=== PATIENT | female | born 1935 | race Native Hawaiian/Other Pacific Islander ===

== ENCOUNTER 2018-01-16 08:50 | Inpatient (IN) | payer MEDICARE, MEDICAID ==
--- NOTE | 2018-01-16 09:25 | ED PDOC ---
Arrival/HPI - General Chief Complaint: Abdominal Pain Time Seen by Provider: 01/16/18 09:10 Historian: Patient, Family (son) - History of Present Illness Narrative History of Present Illness (Text): 01/16/18 09:15 pt p/w + 1 day onset of epigastric pain, waxing and waning, at most pain is 7/10 ; non-radiating, + decr appetite, + nausea, no vomiting, + 5-6 episodes of loose bm/diarrhea, non-bloody/+watery; pt states no fever/chills/sweats, no cp/ sob/palpitations, no numbness/tingling, no urinary changes, no fall/trauma/sick contact, no travel; + lightheadedness, no loc; pt denied other complaints; pt is here for further eval. Time/Duration: 24 hours Symptom Onset: Sudden Symptom Course: Intermittent, Worsening Severity Level: 7, Severe Activities at Onset: Rest Context: Home Past Medical History - Provider Review Nursing Documentation Reviewed: Yes - Travel History Have you recently traveled outside [place] w/in the past 3 mons?: No - Past History Past History: No Previous - Infectious Disease Hx of Infectious Diseases: None - Tetanus Immunization Tetanus Immunization: Unknown - Cardiac Hx Hypertension: Yes - Hematological/Oncological Hx Shingles: Yes - Musculoskeletal/Rheumatological Hx Arthritis: Yes - Psychiatric Hx Depression: No Hx Emotional Abuse: No Hx Physical Abuse: No Hx Substance Use: No - Past Surgical History Past Surgical History: Unable to Obtain - Anesthesia Hx Anesthesia: No - Suicidal Assessment Feels Threatened In Home Enviroment: No Family/Social History - Physician Review Nursing Documentation Reviewed: Yes Family/Social History: No Known Family HX Smoking Status: Never Smoked Hx Alcohol Use: No Hx Substance Use: No Hx Substance Use Treatment: No Allergies/Home Meds Allergies/Adverse Reactions: Allergies No Known Allergies Allergy (Verified 01/16/18 09:22) Home Medications: Home Meds Medication Instructions Recorded Confirmed Unobtainable 01/16/18 01/16/18 Review of Systems - Review of Systems Constitutional: Normal Eyes: Normal ENT: Normal Respiratory: Normal Cardiovascular: Normal Gastrointestinal: Abdominal Pain, Diarrhea, Nausea Genitourinary Female: Normal Musculoskeletal: Normal Skin: Normal Neurological: Dizziness. absent: Headache, Focal Weakness Endocrine: Normal Hemo/Lymphatic: Normal Psychiatric: Normal Physical Exam Vital Signs Reviewed: Yes Vital Signs Temp Pulse Resp BP Pulse Ox 01/16/18 13:19 87 20 113/56 L 95 01/16/18 09:22 98.2 F 95 H 18 139/77 94 L Temperature: Afebrile Blood Pressure: Normal Pulse: Regular Respiratory Rate: Other (slight decr pulse ox, otherwise no tachypenia) Appearance: Positive for: Well-Appearing Pain Distress: Moderate Mental Status: Positive for: Alert and Oriented X 3 - Systems Exam Head: Present: Atraumatic, Normocephalic Pupils: Present: PERRL Extroacular Muscles: Present: EOMI Conjunctiva: Present: Normal Ears: Present: Normal Mouth: Present: Normal Teeth Pharnyx: Present: Normal Nose (External): Present: Atraumatic Nose (Internal): Present: Normal Inspection Neck: Present: Normal Range of Motion, Trachea Midline. No: MIDLINE TENDERNESS Respiratory/Chest: Present: Clear to Auscultation, Good Air Exchange. No: Respiratory Distress Cardiovascular: Present: Regular Rate and Rhythm. No: Murmurs Abdomen: Present: Normal Bowel Sounds Back: Present: Normal Inspection. No: Midline Tenderness Upper Extremity: Present: Normal Inspection, Normal ROM, NORMAL PULSES, Neurovascularly Intact, Capillary Refill < 2s Lower Extremity: Present: Normal Inspection, NORMAL PULSES, Normal ROM, Neurovascularly Intact, Capillary Refill < 2 s Neurological: Present: GCS=15, CN II-XII Intact, Speech Normal Skin: Present: Warm, Normal Color Psychiatric: Present: Alert, Oriented x 3 Medical Decision Making ED Course and Treatment: 01/16/18 09:20 Impression: epigastric pain i have consider all the differential diagnosis regarding pt's chief medical complaints/clinical findings, including but are not limited to: r/o gb, r/o GI pathology, unlikely Cards, unlikely pna A/P: epigastric pain - labs - iv - xray, ekg, us - ua - observe - supportive care 01/16/2018 11:07 Abdominal Ultrasound IMPRESSION: Echogenic liver may be seen in setting of hepatic parenchymal disease or fatty infiltration. Dictator: Olivia Horta MD 01/16/2018 12:38 Chest X-ray IMPRESSION: Mild central pulmonary vascular congestive changes with the atelectasis and/or developing infiltrate right lung base. Small right-sided effusion with small amount of fluid tracking into the minor fissure. Minor left basilar atelectasis. Dictator: Brandon Cassidy DO 01/16/2018 12:39 Abd/Pelvis CT IMPRESSION: No acute findings. Dictator: Luis Barber MD 01/16/18 13:00 pt is feeling improved vital signs indicate pulse ox dips to 89% on room air, pt is not in any distress however with + xray findings and pt's vital sign changes, will recommend patient for admission/iv abx pt/son are made aware of pt's medical results agrees with admission 01/16/18 14:27 Spoke to automobile contract clerk PCP, Dr Fox, made aware, agrees with ED mgt/txt, would like CT chest prior to patient moving upstairs, and would like patient admitted to remote tele; agrees with admission Re-evaluation Time: 13:00 Reassessment Condition: Improved - Lab Interpretations Lab Results: 01/16/18 10:02 01/16/18 11:00 Lab Results 01/16/18 11:00: Sodium 142, Potassium 4.1, Chloride 105, Carbon Dioxide 23, Anion Gap 17, BUN 15, Creatinine 0.6 L, Est GFR ( Amer) > 60, Est GFR ( Non-Af Amer) > 60, Random Glucose 114 H, Calcium 9.0, Total Bilirubin 1.0, AST 29, ALT 43, Alkaline Phosphatase 45, Troponin I < 0.01, Total Protein 7.4, Albumin 4.3, Globulin 3.0, Albumin/Globulin Ratio 1.4, Lipase 60 01/16/18 10:02: PT 10.4, INR 0.91 L, APTT 29.1 01/16/18 10:02: WBC 19.6 H D, RBC 4.70, Hgb 14.8, Hct 43.8, MCV 93.2, MCH 31.5, MCHC 33.8, RDW 13.0, Plt Count 244, MPV 10.1, Gran % 87.0 H, Lymph % (Auto) 7.0 L, [place] % (Auto) 5.7, Eos % (Auto) 0.2 L, Baso % (Auto) 0.1, Gran # 17.05 H, Lymph # (Auto) 1.4, [place] # (Auto) 1.1 H, Eos # (Auto) 0.0, Baso # (Auto) 0.02 I have reviewed the lab results: Yes Interpretation: Abnormal lab values (elevated WBCs) - RAD Interpretation Narrative RAD Interpretations (Text): 01/16/18 11:37 HISTORY: epigastric pain COMPARISON: None available TECHNIQUE: Sonographic evaluation of the abdomen. FINDINGS: LIVER: Measures 15.3 cm in sagittal dimension. Echogenic liver may be seen in setting of hepatic parenchymal disease or fatty infiltration. No focal hepatic mass identified. The main portal vein appears patent with normal directional flow. No intrahepatic bile duct dilatation. GALLBLADDER: No gallstones. No gallbladder wall thickening. Negative sonographic Black's sign as assessed by the cemetery workers supervisor. COMMON BILE DUCT: Measures 5 mm. PANCREAS: Not well visualized. RIGHT KIDNEY: Measures 10.7 x 4.5 x 4.5cm. No obstructing calculus or hydronephrosis identified. LEFT KIDNEY: Measures 10.5 x 5.7 x 5.4cm. No obstructing calculus or hydronephrosis identified. SPLEEN: Measures approximately 7.5 cm. AORTA: Limited views appear unremarkable. IVC: Limited views appear unremarkable. OTHER FINDINGS: None. IMPRESSION: Echogenic liver may be seen in setting of hepatic parenchymal disease or fatty infiltration. 01/16/18 13:38 HISTORY: epigastric pain, weakness COMPARISON: Comparison made with chest radiograph 06/26/2013. TECHNIQUE: Chest PA and lateral FINDINGS: LUNGS: Mild central pulmonary vascular congestive changes the with atelectasis and or developing infiltrate right lung base. Small right-sided effusion with small amount fluid seen tracking into the minor fissure . Minor left basilar atelectasis. PLEURA: No significant pleural effusion identified. No pneumothorax apparent. CARDIOVASCULAR: Heart size is mildly enlarged. OSSEOUS STRUCTURES: No significant abnormalities. VISUALIZED UPPER ABDOMEN: Normal. OTHER FINDINGS: None. IMPRESSION: Mild central pulmonary vascular congestive changes the with atelectasis and or developing infiltrate right lung base. Small right-sided effusion with small amount of fluid tracking into the minor fissure. Minor left basilar atelectasis. Cardiomegaly. HISTORY: epigastric pain, nausea, diarrhea COMPARISON: None. TECHNIQUE: Contrast dose: 100 cc of Omni 350 Radiation dose: Total exam DLP = 316 mGy-cm. This CT exam was performed using one or more of the following dose reduction techniques: Automated exposure control, adjustment of the mA and/or kV according to patient size, and/or use of iterative reconstruction technique. FINDINGS: LOWER THORAX: Unremarkable. LIVER: Unremarkable. No gross lesion or ductal dilatation. GALLBLADDER AND BILE DUCTS: Unremarkable. PANCREAS: Unremarkable. No gross lesion or ductal dilatation. SPLEEN: Unremarkable. ADRENALS: Unremarkable. No mass. KIDNEYS AND URETERS: Unremarkable. No hydronephrosis. No solid mass. VASCULATURE: Unremarkable. No aortic aneurysm. BOWEL: Unremarkable. No obstruction. No gross mural thickening. APPENDIX: Normal appendix. PERITONEUM: Small amount of free fluid LYMPH NODES: Unremarkable. No enlarged lymph nodes. BLADDER: Unremarkable. REPRODUCTIVE: Unremarkable. 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 IMPRESSION: No acute findings Radiology Orders: 01/16/18 09:37 ABDOMEN COMPLETE [US] Stat 01/16/18 11:38 ABD & PELVIS IV CONTRAST ONLY [CT] Stat CHEST TWO VIEWS (PA/LAT) [RAD] Stat 01/16/18 14:22 CHEST W/O CONTRAST [CT] Stat Crisis Intervention Specialist: Radiologist - EKG Interpretation EKG Interpretation (Text): 01/16/18 13:38 NSR at 80 bpm, normal axis, no ectopy, low voltage inf leads, no st-t changes, borderline EKG; unchanged compare with old ekg 08/2016 Interpreted by ED Physician: Yes Type: 12 lead EKG Comparison: Similar to previous EKG - Medication Orders Current Medication Orders: Sodium Chloride (Sodium Chloride 0.9%) 1,000 mls @ 100 mls/hr IV .Q10H STA Stop: 01/16/18 19:36 Last Admin: 01/16/18 09:59 Dose: 100 mls/hr eMAR Start Stop Document 01/16/18 09:59 OCS (Rec: 01/16/18 10:00 OCS [id number]) Intravenous Solution Start Date 01/16/18 Start Time 10:00 Azithromycin (Zithromax 500mg In Ns) 500 mg in 250 mls @ 167 mls/hr IVPB STAT STA PRN Reason: Protocol Stop: 01/16/18 15:04 Discontinued Medications Famotidine (Pepcid) 20 mg IVP STAT STA Stop: 01/16/18 09:38 Last Admin: 01/16/18 10:00 Dose: 20 mg IVP Administration Document 01/16/18 10:00 OCS (Rec: 01/16/18 10:00 OCS [id number]) Charges for Administration # of IVP Administrations 1 Ceftriaxone Sodium (Rocephin 1 Gram Ivpb) 1 gm in 100 mls @ 200 mls/hr IVPB STAT STA PRN Reason: Protocol Stop: 01/16/18 14:00 Last Admin: 01/16/18 14:06 Dose: 200 mls/hr eMAR Start Stop Document 01/16/18 14:06 OCS (Rec: 01/16/18 14:08 OCS [id number]) Intravenous Solution Start Date 01/16/18 Start Time 14:07 Morphine Sulfate (Morphine) 4 mg IVP STAT STA Stop: 01/16/18 09:38 Last Admin: 01/16/18 10:00 Dose: 4 mg MAR Pain Assessment Document 01/16/18 10:00 OCS (Rec: 01/16/18 10:00 OCS [id number]) Pain Reassessment Is this a pain reassessment? Yes Sleep Is patient sleeping during reassessment? No Presence of Pain Presence of Pain Yes Location Upper or Lower Upper Pain Location Body Site Abdomen Description Description Constant Intensity of Pain at present 7 Aggravating Factors ADL's IVP Administration Document 01/16/18 10:00 OCS (Rec: 01/16/18 10:00 OCS [id number]) Charges for Administration # of IVP Administrations 1 Ondansetron HCl (Zofran Inj) 4 mg IVP STAT STA Stop: 01/16/18 09:38 Last Admin: 01/16/18 10:00 Dose: 4 mg IVP Administration Document 01/16/18 10:00 OCS (Rec: 01/16/18 10:00 OCS [id number]) Charges for Administration # of IVP Administrations 1 Disposition/Present on Arrival - Present on Arrival Any Indicators Present on Arrival: No History of DVT/PE: No History of Uncontrolled Diabetes: No Urinary Catheter: No History Surgical Site Infection Following: None - Disposition Have Diagnosis and Disposition been Completed?: Yes Diagnosis: Pneumonia, Weakness, Dehydration, Leukocytosis Disposition: HOSPITALIZED Disposition Time: 13:43 Patient Plan: Admission Patient Problems: Current Active Problems Problem Status Onset Pneumonia Acute Weakness Acute Dehydration Acute Condition: STABLE Discharge Instructions (ExitCare): Weakness (ED) Referrals: Felix Brooks MD [Primary Care Provider] - Follow up with primary Forms: [employer] (Ecuadorean)
[2018-01-16] MEDS ORDERED: Sodium Chloride 0.9% 1,000 ML IV STA ×2 (09:37→19:32)
[2018-01-16] MEDS ORDERED: Morphine 4 mg/ml ISec IVP STA (09:37)
[2018-01-16 10:25] LABS: BASO # 0.02 K/mm3 (0.0-2.0); BASO % 0.1 % (0.0-3.0); EOS % 0.2 % (1.5-5.0); GRAN # 17.05 (1.4-6.5); HEMOGLOBIN 14.8 g/dL (12.0-16.0); LYMPH # 1.4 (1.2-3.4); MEAN CELL VOLUME 93.2 fl (80.0-105.0); MEAN CORPUSCULAR HEMOGLOBIN 31.5 pg (25.0-35.0); MEAN CORPUSCULAR HGB CONC 33.8 g/dl (31.0-37.0); MEAN PLATELET VOLUME 10.1 fl (7.0-11.0); MONO # 1.1 (0.1-0.6); MONO % 5.7 % (1.0-6.0); RBC 4.7 10^6/uL (3.5-6.1); WHITE BLOOD COUNT 19.6 10^3/ul (4.5-11.0)
[2018-01-16 10:39] LABS: INR 0.91 (0.93-1.08); PARTIAL THROMBOPLASTIN TIME 29.1 Seconds (25.1-36.5); PROTHROMBIN TIME 10.4 SECONDS (9.4-12.5)
--- NOTE | 2018-01-16 11:08 | US ---
HISTORY: epigastric pain COMPARISON: None available TECHNIQUE: Sonographic evaluation of the abdomen. FINDINGS: LIVER: Measures 15.3 cm in sagittal dimension. Echogenic liver may be seen in setting of hepatic parenchymal disease or fatty infiltration. No focal hepatic mass identified. The main portal vein appears patent with normal directional flow. No intrahepatic bile duct dilatation. GALLBLADDER: No gallstones. No gallbladder wall thickening. Negative sonographic Black's sign as assessed by the machine technician. COMMON BILE DUCT: Measures 5 mm. PANCREAS: Not well visualized. RIGHT KIDNEY: Measures 10.7 x 4.5 x 4.5cm. No obstructing calculus or hydronephrosis identified. LEFT KIDNEY: Measures 10.5 x 5.7 x 5.4cm. No obstructing calculus or hydronephrosis identified. SPLEEN: Measures approximately 7.5 cm. AORTA: Limited views appear unremarkable. IVC: Limited views appear unremarkable. OTHER FINDINGS: None. IMPRESSION: Echogenic liver may be seen in setting of hepatic parenchymal disease or fatty infiltration.
[2018-01-16 11:18] LABS: ALB/GLOB RATIO 1.4 (1.1-1.8); ALBUMIN 4.3 g/dL (3.0-4.8); ALT/SGPT 43 U/L (7-56); AST/SGOT 29 U/L (14-36); BLOOD UREA NITROGEN 15 mg/dL (7-21); GFR AFRICAN-AMERICAN > 60; GFR NON-AFRICAN AMERICAN > 60; LIPASE 60 U/L (23-300)
[2018-01-16 11:29] LABS: TROPONIN I < 0.01 ng/mL
[2018-01-16] MEDS ORDERED: Iohexol 350 MG/100 ML VIAL ONE (11:45)
--- NOTE | 2018-01-16 12:40 | RAD ---
HISTORY: epigastric pain, weakness COMPARISON: Comparison made with chest radiograph 06/26/2013. TECHNIQUE: Chest PA and lateral FINDINGS: LUNGS: Mild central pulmonary vascular congestive changes the with atelectasis and or developing infiltrate right lung base. Small right-sided effusion with small amount fluid seen tracking into the minor fissure . Minor left basilar atelectasis. PLEURA: No significant pleural effusion identified. No pneumothorax apparent. CARDIOVASCULAR: Heart size is mildly enlarged. OSSEOUS STRUCTURES: No significant abnormalities. VISUALIZED UPPER ABDOMEN: Normal. OTHER FINDINGS: None. IMPRESSION: Mild central pulmonary vascular congestive changes the with atelectasis and or developing infiltrate right lung base. Small right-sided effusion with small amount of fluid tracking into the minor fissure. Minor left basilar atelectasis. Cardiomegaly.
--- NOTE | 2018-01-16 12:41 | CT ---
PROCEDURE: CT Abdomen and Pelvis with contrast HISTORY: epigastric pain, nausea, diarrhea COMPARISON: None. TECHNIQUE: Contrast dose: 100 cc of Omni 350 Radiation dose: Total exam DLP = 316 mGy-cm. This CT exam was performed using one or more of the following dose reduction techniques: Automated exposure control, adjustment of the mA and/or kV according to patient size, and/or use of iterative reconstruction technique. FINDINGS: LOWER THORAX: Unremarkable. LIVER: Unremarkable. No gross lesion or ductal dilatation. GALLBLADDER AND BILE DUCTS: Unremarkable. PANCREAS: Unremarkable. No gross lesion or ductal dilatation. SPLEEN: Unremarkable. ADRENALS: Unremarkable. No mass. KIDNEYS AND URETERS: Unremarkable. No hydronephrosis. No solid mass. VASCULATURE: Unremarkable. No aortic aneurysm. BOWEL: Unremarkable. No obstruction. No gross mural thickening. APPENDIX: Normal appendix. PERITONEUM: Small amount of free fluid LYMPH NODES: Unremarkable. No enlarged lymph nodes. BLADDER: Unremarkable. REPRODUCTIVE: Unremarkable. 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 IMPRESSION: No acute findings
[2018-01-16] MEDS ORDERED: cefTRIAXone 1 gm 1 GM/100 ML BAG IVPB STA (13:31)
[2018-01-16] MEDS ORDERED: Azithromycin 500MG/NS 250ml 500 MG/250 ML BAG IVPB STA (13:35)
--- NOTE | 2018-01-16 15:50 | CT ---
PROCEDURE: CT Chest without contrast HISTORY: sob/abnl xray COMPARISON: None. TECHNIQUE: Contiguous axial images were obtained through the chest without intravenous contrast enhancement. Sagittal and coronal reconstructions were performed. Radiation dose (DLP): 189 mGy-cm. This CT exam was performed using one or more of the following dose reduction techniques: Automated exposure control, adjustment of the mA and/or kV according to patient size, and/or use of iterative reconstruction technique. FINDINGS: LUNGS: Clear lungs. Visualized airway clear. There is a calcified scar at the right lung base MEDIASTINUM: Unremarkable thoracic aorta. No aneurysm. Normal sized heart. Main pulmonary artery unremarkable. No vascular congestion. No lymphadenopathy. PLEURA: There is a small loculated effusion in the right major fissure. This measures fluid density. BONES: No fracture. No destructive lesion. UPPER ABDOMEN: There is some moderately dense sludge in the gallbladder OTHER FINDINGS: None. IMPRESSION: Small fluid loculation in the major fissure on the right. The lungs are otherwise clear.
[2018-01-16 16:17] VITALS: BMI 22.3
[2018-01-16] MEDS ORDERED: Influenza Vaccine 60 mcg/0.5 mL SYR (4YR UP) IM ONE (16:18)
[2018-01-16] MEDS ORDERED: Pneumococcal 23-Valent Vaccine IM ONE (16:18)
[2018-01-16] MEDS ORDERED: guaiFENesin DM 100 mg-10 mg/5 ml UD PO PRN (18:15)
[2018-01-16] MEDS: Levalbuterol 0.63 MG/3 ML Inhal Soln UD IH SCH (21:17)
--- NOTE | 2018-01-16 22:20 | CARD ---
APPROVED REPORT EKG Measurement Heart [id number] MA [id number] <Conclusion> Normal sinus rhythm Possible Left atrial enlargement Borderline ECG
[2018-01-17] MEDS: Levalbuterol 0.63 MG/3 ML Inhal Soln UD IH SCH ×4 (02:50→19:42)
--- NOTE | 2018-01-17 05:47 | HP ---
DATE OF EXAM: 01/16/2018 HISTORY OF PRESENT ILLNESS: This 82-year-old female was examined at her bedside in the presence of her daughter and is admitted with pneumonia. She presented to [facility] ER complaining of midepigastric discomfort for the past day. This was associated with nausea and several episodes of loose watery diarrhea as well as dizziness and discomfort that she rated as 7/10 on the pain scale. In the emergency room, she underwent diagnostic workup including laboratories, abdominal ultrasound, abdominopelvic CT, and chest CT as well as chest x-ray and was found to have clinical pneumonia. She is admitted for further evaluation of the above. PAST MEDICAL HISTORY: Chronic hypertension, hyperlipidemia. ALLERGIES: DENIES ANY ALLERGIES TO MEDICATION. SOCIAL HISTORY: She is a nondrinker, nonsmoker, retired homemaker. FAMILY HISTORY: Noncontributory. REVIEW OF SYSTEMS: CONSTITUTIONAL: She denied any fever or chills, HEAD: Denied any headache or seizure. EYES: No change in visual acuity. EARS: No hearing loss. THROAT: No swallowing difficulty. NECK: No stiffness. CARDIAC: Chronic hypertension. PULMONARY: She denied hemoptysis or cough. GASTROINTESTINAL: She had abdominal discomfort, now resolved. GENITOURINARY: No dysuria. SKIN: No rash. VASCULAR: No claudication. PSYCHOLOGICAL: No anxiety. NEUROLOGICAL: No knowledge of stroke. OUTPATIENT MEDICATIONS: Had included Norvasc, Vasotec, and Lipitor. PHYSICAL EXAMINATION: GENERAL: The patient lying in bed with IV fluid infusing. VITAL SIGNS: Temperature of 98.2, respirations 20, pulse 87, and blood pressure 113/56 with a pulse ox of 95%. HEAD: Normocephalic, atraumatic. EYES: No icterus. EARS: Clear. THROAT: Noninjected. NECK: Supple. HEART: Regular S1, S2. LUNGS: With rhonchi at the right posterior base. ABDOMEN: Soft. No rebound. No guarding. EXTREMITIES: No edema. SKIN: Without rash. NEUROLOGICAL: Intact. PSYCHOLOGICAL: Alert. VASCULAR: Legs warm to touch. LABORATORY DATA: White count 19,600, hemoglobin 14.8, hematocrit 43.8, platelets 244,000. PT/INR 0.91, PTT 29.1. Sodium 142, K 4.1, chloride 105, bicarb 23, BUN 15, creatinine 0.6, random blood sugar 114. Bilirubin 1.0, AST 29, ALT 43, and alkaline phosphatase 45. Troponin less than 0.01. Lipase 60. Abdominal ultrasound was reviewed. Liver was noted to be consistent with fatty infiltrate. No liver masses noted. No dilatation of hepatic ducts. Gallbladder showed no gallstones. Both kidneys showed no masses, no stones, no hydronephrosis. Abdominopelvic CT was reviewed. This was done with IV contrast. Liver, gallbladder, and pancreas were unremarkable. Her renogram showed no evidence of mass, both kidneys were unremarkable with no hydronephrosis or mass. Her bowel showed no evidence of obstruction nor diverticulitis and her appendix appeared normal. Chest x-ray was reviewed. There was an infiltrate at the right lung base with a small right-sided effusion and minimal left basilar atelectasis noted. No pneumothorax was noted. Mild central vascular congestion was noted. Chest CT was reviewed. There was no evidence of mass, but once again, infiltrate was noted at the right base. IMPRESSION: This is an 82-year-old female with community-acquired pneumonia, history of chronic hypertension, and hyperlipidemia, now admitted with cough, clinical and radiographic pneumonia, and leukocytosis. PLAN: Is discussed with the patient, family at bedside, nursing, and emergency room physician, will be to admit this patient to the Cardiac Unit and she is ordered to have a blood culture and repeat basic metabolic panel and CBC in a.m. She is ordered to receive Lipitor 10 mg p.o. at dinnertime, Norvasc 5 mg p.o. daily, Pepcid 20 mg p.o. at bedtime, Robitussin 5 mL p.o. q.4h. p.r.n. cough, Rocephin 1 g IV q. 24h., 0.9 saline at 70 mL/hour, Zestril 10 mg p.o. b.i.d., Xopenex inhalational therapy 0.63 mg q.6h., Zithromax 500 mg IV q.24h., Tylenol 650 p.o. q.6h. p.r.n. pain or temperature, and Zofran 4 mg IV q.6h. p.r.n. nausea and vomiting. She is ordered to have nasal O2 p.r.n. and a heart-healthy soft bland diet. I have ordered her to be out of bed to chair with assistance and I have ordered physical therapy for reconditioning and gait training. Greater than 75 minutes was spent in the care, management, review of x-rays, labs, ordering of medication, and testings for this patient today as well as discussion with her family and emergency room physician and nursing. All questions were answered. Kaylie Fox MD MTDD
[2018-01-17 07:46] LABS: MEAN CELL VOLUME 93.2 fl (80.0-105.0); MEAN CORPUSCULAR HEMOGLOBIN 31.2 pg (25.0-35.0); MEAN CORPUSCULAR HGB CONC 33.4 g/dl (31.0-37.0); MEAN PLATELET VOLUME 9.9 fl (7.0-11.0); RBC 3.85 10^6/uL (3.5-6.1); RED CELL DISTRIBUTION WIDTH 13.2 % (11.5-14.5); WHITE BLOOD COUNT 8.9 10^3/ul (4.5-11.0)
[2018-01-17 08:34] LABS: BLOOD UREA NITROGEN 12 mg/dL (7-21); CALCIUM 8.4 mg/dL (8.4-10.5); GFR AFRICAN-AMERICAN > 60; GFR NON-AFRICAN AMERICAN > 60
[2018-01-17] MEDS ORDERED: Potassium Chloride 20 mEq ER Tab PO ONE (09:40)
[2018-01-17] MEDS: Azithromycin 500MG/NS 250ml 500 MG/250 ML BAG IVPB SCH (10:05)
[2018-01-17] MEDS: Sodium Chloride 0.9% 1,000 ML IV SCH (10:07)
--- NOTE | 2018-01-17 12:21 | PN ---
DATE: 01/17/2018 SUBJECTIVE: This 82-year-old female was examined at the bedside and this case was reviewed in detail with herself cells and her nurse, Zenaida Bentley. The patient has had no further vomiting since admission. However, this morning's potassium is depressed in the setting of recent vomiting and diarrhea at home. She is being treated with parenteral antibiotics for a right lower lung pneumonia and she denies any fever or chills at present. She has a nonproductive cough. PHYSICAL EXAMINATION: VITAL SIGNS: Shows her monitoring manager with normal sinus rhythm, temperature 98, respirations 17, pulse 72 and blood pressure 118/60 with a pulse ox of 98%. HEENT: Head: Normocephalic, atraumatic. Eyes: No icterus. Ears: Clear. Throat: Noninjected. NECK: Supple. HEART: Regular S1, S2. LUNGS: With rhonchi at the right base. ABDOMEN: Soft. EXTREMITIES: No edema. SKIN: Without rash. NEUROLOGICAL: Intact. PSYCHOLOGICAL: Alert. VASCULAR: Legs warm to touch. LABORATORY DATA: White count 8900, hemoglobin 12, hematocrit 35.9, platelets 209,000. PT/INR is 0.91, PTT 29.1. Sodium 144, K 3.5, chloride 107, bicarb 24, BUN 12, creatinine 0.7, random blood sugar is 100. All liver function testing was normal including bilirubin 1.0, AST 29, ALT 43, alkaline phosphatase 45. Chest x-ray was reviewed and consistent with a right lower lobe infiltrate. Chest CT was reviewed showed no evidence of pulmonary mass or pulmonary embolism. Abdominal ultrasound was reviewed. There was evidence of fatty liver infiltration, but no evidence of cholecystitis or liver mass. Fatty liver was present and there was no hydronephrosis or renal stones. IMPRESSION: This is an 82-year-old female with community-acquired right lower lung pneumonia, history of recent gastroenteritis, now with hypokalemia and comorbidities of hyperlipidemia, chronic hypertension and deconditioning. PLAN: As discussed with nursing will be to order 40 mEq of p.o. potassium x1 dose and we will repeat her potassium level in the a.m. She continues on physical therapy for reconditioning and gait training while remaining on high-risk fall protocol and a heart-healthy soft bland diet with 2 liters of nasal O2 p.r.n. She has orders for Zofran 4 mg IV q.6 hours p.r.n. nausea, vomiting, Zithromax 500 mg IV daily, Zestril 10 mg p.o. b.i.d., Xopenex inhalational therapy 0.63 mg q.6 hours, 0.9 saline at 50 mL/hour, Rocephin 1 g IV q.24, Robitussin DM 5 mL p.o. q.4 hours p.r.n. cough, Pepcid 20 mg p.o. at bedtime, Norvasc 5 mg p.o. daily, Lipitor 10 mg p.o. at dinnertime and blood cultures that were received are still pending. Patient will be evaluated for probable transitional care rehab and greater than 35 minutes was spent in the care, management, review of x-rays, labs, medication and outlining of orders and discussion of her progress with nursing. All questions were answered. Kaylie Fox MD [facility]
[2018-01-17] MEDS: cefTRIAXone 1 gm 1 GM/100 ML BAG IVPB SCH (12:45)
[2018-01-18] MEDS: Levalbuterol 0.63 MG/3 ML Inhal Soln UD IH SCH ×4 (01:27→20:08)
[2018-01-18] MEDS: cefTRIAXone 1 gm 1 GM/100 ML BAG IVPB SCH (10:09)
[2018-01-18] MEDS: Azithromycin 500MG/NS 250ml 500 MG/250 ML BAG IVPB SCH (12:00)
--- NOTE | 2018-01-18 21:26 | PN ---
DATE: 01/18/2018 SUBJECTIVE: This 82-year-old female was examined at the bedside on the cardiac gamboa at the [facility] on Friday morning, 01/18/2018. This case was reviewed in detail with her registered nurse, Beatriz Chilel. The patient has a nonproductive cough, but denies any chest pain, fever, or shortness of breath. She remains in a normal sinus rhythm on the learning engineer. She is receiving IV antibiotics, IV fluids and pulmonary IH agents. PHYSICAL EXAMINATION: VITAL SIGNS: Her temperature was 97.9, respirations 18, pulse 65, and blood pressure 134/66 with pulse ox 96%. HEENT: Head: Normocephalic, atraumatic. Eyes: No icterus. Ears: Clear. Throat: Noninjected. NECK: Supple. HEART: Regular S1, S2. LUNGS: Rhonchi at the right base. No wheezing, no rales. ABDOMEN: Soft. EXTREMITIES: No edema. SKIN: Without rash. NEUROLOGICAL: Intact. PSYCHOLOGICAL: Alert. VASCULAR: Legs warm to touch. LABORATORY DATA: White count 8900, hemoglobin 12, hematocrit 35.9, platelets 209,000. PT/INR 0.91, PTT 29.1. Sodium 144, K 4.0, chloride 107, bicarb 24, BUN 12, creatinine 0.7, random blood sugar 100. All liver function testing was normal including bilirubin 1.0, AST 29, ALT 43, and alk phos 45. Chest x-ray was reviewed and was consistent with a right lower lung infiltrate. Chest CT was reviewed. Small fluid was noted in the right major fissure. No aneurysm was noted. Heart was normal in size. No vascular congestion was noted. No lymphadenopathy noted. IMPRESSION: This is an 82-year-old female with right lung pneumonia, comorbidities of chronic hypertension and hyperlipidemia. PLAN: Discussed with patient, family, and nursing, will be to continue Rocephin 1 g IV q.24, Zithromax 500 mg IV daily, Zestril 10 mg p.o. b.i.d., Xopenex inhalational therapy q.6, Robitussin DM 5 mL p.o. q.4 hours p.r.n. cough, Pepcid 20 mg p.o. at bedtime, Norvasc 5 mg p.o. daily, and Lipitor 10 mg p.o. daily. Patient has been ordered to have physical therapy, continued IV antibiotics, and medications as outlined. All of the above was discussed in detail with patient and nursing and family. All questions were answered. Kaylie Fox MD [facility]
[2018-01-19] MEDS: Levalbuterol 0.63 MG/3 ML Inhal Soln UD IH SCH ×3 (01:09→13:32)
[2018-01-19] MEDS: cefTRIAXone 1 gm 1 GM/100 ML BAG IVPB SCH (09:46)
[2018-01-19] MEDS: Azithromycin 500MG/NS 250ml 500 MG/250 ML BAG IVPB SCH (11:25)
[2018-01-19] MEDS: Sodium Chloride 0.9% 1,000 ML IV SCH (13:26)
--- NOTE | 2018-01-19 14:10 | DS ---
DATE; 01/19/2018 SUBJECTIVE: This is a 82-year-old female who was examined at her bedside in the presence of her [id number], where the patient is receiving IV fluids and IV antibiotics in the setting of right lower lung pneumonia. At present, the patient is denying fever, chills, chest pain and is tolerating IV antibiotics and pulmonary toiletry with inhalational Xopenex. Her rehabilitation technician shows a normal sinus rhythm. PHYSICAL EXAMINATION VITAL SIGNS: Show temperature 97.7, respirations 20, pulse 67 and blood pressure 130/72 with pulse ox 95%. HEENT: Head: Normocephalic, atraumatic. Eyes: No icterus. Ears: Clear. Throat: Noninjected. NECK: Supple. HEART: Regular S1, S2. LUNGS: Have rhonchi at the right base. ABDOMEN: Soft. EXTREMITIES: No edema. SKIN: Without rash. NEUROLOGIC: Intact. PSYCHOLOGIC: Alert. VASCULAR: Legs warm to touch. LABORATORY DATA: White count 8900, hemoglobin 12, hematocrit 35.9, platelets 209,000. PT/INR 0.91, PTT 29.1. Sodium 144, K 4.0, chloride 107, bicarb 24 BUN 12, creatinine 0.7, random blood sugar is 100 and all liver function testing was normal including bilirubin 1.0, AST 29, ALT 43 and alkaline phosphatase 45, lipase 60. IMPRESSION: An 82-year-old female admitted with right lower lung pneumonia, gastroenteritis resolved as well as hypokalemia improved and leukocytosis improved, with comorbidities of hyperlipidemia and chronic hypertension. PLAN: As discussed with the patient, nursing and transitional care rehab, will be to evaluate the patient for TCU for IV antibiotics and reconditioning while continuing IV Rocephin 1 g q. 24, Zithromax 500 mg IV q. 24, Lipitor 10 mg p.o. at dinner time, Norvasc 5 mg p.o. daily, Pepcid 20 mg p.o. at bedtime, Robitussin DM 5 mL p.o. q. 6 hours p.r.n. cough, 0.9 saline at 50 mL/hour, Xopenex inhalational therapy 0.63 mg inhalational q. 6, Zestril 10 mg p.o. b.i.d., Tylenol 650 p.o. q.6 hours p.r.n. pain or temperature greater than 101 and Zofran 4 mg IV q. 6 hours p.r.n. nausea or vomiting. She continues on 2 liters nasal O2, heart healthy soft bland diet, fall precautions and ultimate plan will be for discharge to home when medically stable. Greater than 35 minutes was spent in the discharge management of this patient today. This included discussion and outlining of orders with patient, nursing and family. Kaylie Fox MD [facility]
[2018-01-19 17:15] VITALS: BP 135/67; PULSE 67; RESP 77; TEMP 98; O2SAT 97
== END 2018-01-19 19:28 | DRG 194 ==
LOC: ED 08:50 → ERH 14:39 → 3RNO 15:53
PROVIDERS: ADMIT Internal Medicine; ATTEND Internal Medicine
DX: J18.9 Pneumonia, unspecified organism (principal); J98.11 Atelectasis; E86.0 Dehydration; I11.9 Hypertensive heart disease without heart failure; E78.5 Hyperlipidemia, unspecified; E87.6 Hypokalemia; K52.9 Noninfective gastroenteritis and colitis, unspecified; I51.7 Cardiomegaly

== ENCOUNTER 2018-01-19 19:28 | Inpatient (IN) | payer OTHER, MEDICAID ==
[2018-01-19 20:08] VITALS: BMI 23.8
[2018-01-19] MEDS ORDERED: Sodium Chloride 0.9% 1,000 ML IV SCH (20:15)
[2018-01-19] MEDS ORDERED: guaiFENesin DM 100 mg-10 mg/5 ml UD PO PRN (20:15)
[2018-01-19] MEDS ORDERED: Nitroglycerin 2% Ointment Foilpak UD TOP PRN (20:37)
[2018-01-20] MEDS: Levalbuterol 0.63 MG/3 ML Inhal Soln UD IH SCH ×4 (01:40→20:58)
[2018-01-20] MEDS: cefTRIAXone 1 gm 1 GM/100 ML BAG IVPB SCH ×3 (05:38→10:31)
[2018-01-20 07:01] LABS: HEMOGLOBIN 13.4 g/dL (12.0-16.0)
[2018-01-20 07:25] LABS: BLOOD UREA NITROGEN 10 mg/dL (7-21); CALCIUM 9.3 mg/dL (8.4-10.5); GFR AFRICAN-AMERICAN > 60; GFR NON-AFRICAN AMERICAN > 60
--- NOTE | 2018-01-20 14:25 | PN ---
DATE: 01/20/2018 SUBJECTIVE: This 82-year-old female was examined at her bedside in the presence of her daughter and this case was reviewed in detail with charge nurse, Fifi Bedoya, the registered nurse. The patient is receiving parenteral antibiotics and pulmonary toiletry in the setting of right lower lung pneumonia. She was admitted with nausea, vomiting, electrolyte imbalance and that has resolved since the institution of IV fluids and antibiotics. At present, she denies any fever, chills, chest pain or shortness of breath and is tolerating parenteral antibiotics and diet as outlined. PHYSICAL EXAMINATION: VITAL SIGNS: Temperature is 98.2, respirations 16, pulse 78, blood pressure 138/72, pulse ox 96% room air. HEENT: Head: Normocephalic, atraumatic. Eyes: No icterus. Ears: Clear. Throat: Non-injected. NECK: Supple. HEART: Regular S1, S2. LUNGS: Have rhonchi at the right base. Occasional wheezing that clears with coughing. No rales. ABDOMEN: Soft. EXTREMITIES: No edema. SKIN: Without rash. NEUROLOGIC: intact. PSYCHOLOGIC: Alert. VASCULAR: Legs warm to touch. LABORATORY DATA: Hemoglobin 13.4, hematocrit 40.5. Sodium 145, K 4.2, chloride 105, bicarb 28, BUN 10, creatinine 0.7, random blood sugar is 95. IMPRESSION: An 82-year-old female with community-acquired right lower lung pneumonia and comorbidities of hyperlipidemia, chronic hypertension and peptic ulcer disease. PLAN: Discussed with the patient, nursing and daughter at the bedside will be to continue physical and occupational therapy for reconditioning and gait training while maintaining the patient on high fall risk protocol and a heart-healthy soft bland diet. She is ordered to receive 2 L nasal O2 p.r.n. and has orders for Zofran 4 mg IV q. 6 hours p.r.n. nausea and vomiting, Zithromax 500 mg p.o. daily, Zestril 10 mg p.o. b.i.d., Xopenex inhalational therapy 0.63 mg q. 6 hours, Rocephin 1 g IV q. 24, Robitussin DM 5 mL p.o. q. 4 hours. p.r.n. cough, Pepcid 20 mg p.o. at bedtime, Norvasc 5 mg p.o. daily, Lipitor 10 mg p.o. daily and nitroglycerin 1 inch to chest wall q. 4 hours if systolic blood pressure greater than 160 or diastolic blood pressure greater than 100. Ultimate plan will be for discharge to home when the patient is medically stable. Greater than 35 minutes was spent in the care, review of meds, labs, outlining of orders with the patient, her daughter at the bedside and nursing. All questions were answered. Kaylie Fox MD [facility]
--- NOTE | 2018-01-20 16:34 | IP.NPCORE ---
Pneumonia Progress Notes - Oxygenation Assessment (REQUIRED) O2 Saturation: 96 Oxygen Delivery Method: Room Air Date: 01/19/18 Documented P02: No - Blood Cultures (REQUIRED) Culture drawn: Yes Date:: 01/16/18
--- NOTE | 2018-01-20 16:39 | IP.NPCORE ---
Pneumonia Progress Notes - Oxygenation Assessment (REQUIRED) Documented 02: Yes O2 Saturation: 96 Oxygen Delivery Method: Room Air Documented P02: No - Blood Cultures (REQUIRED) Culture drawn: Yes Date:: 01/16/18 Time:: 13:00 - Initial Antibiotic Initial Antibiotic given within Four Hours:: Yes Date:: 01/16/18 Time:: 14:55 - Appropriate Antibiotic Appropriate Antibiotic within 24 hours of Admission:: Yes Current Antibiotic: Zithromax, rocephin No change in antibiotics: Yes - Pneumonia Vaccine Pneumonia Vaccine: No (patient refused) - Smoking Cessation Smoking Cessation counseling provided:: No Ex-Smoker (has not smoked in the last 12 months): No Current Smoker - smoking cessation education provided: No
[2018-01-21] MEDS: Levalbuterol 0.63 MG/3 ML Inhal Soln UD IH SCH ×4 (03:00→21:12)
[2018-01-21] MEDS: cefTRIAXone 1 gm 1 GM/100 ML BAG IVPB SCH (05:47)
--- NOTE | 2018-01-21 12:17 | PN ---
DATE: SUBJECTIVE: This 82-year-old female remains hospitalized, receiving IV antibiotics for right lower lung pneumonia. She was admitted with cough, shortness of breath and nausea and vomiting and was noted to have electrolyte imbalance and this was treated with parenteral fluids and potassium replacement; at present, her appetite is improving. She is tolerating diet and medication with no reports of fever, chills, nausea or vomiting or diarrhea and is receiving IV antibiotics for her community-acquired right lower lung pneumonia. PHYSICAL EXAMINATION VITAL SIGNS: Temperature is 98.2, respirations 18, pulse 70, blood pressure 135/72 with a pulse oximetry of 98%. HEENT: Head: Normocephalic, atraumatic. Eyes: No icterus. Ears: Clear. Throat: Noninjected. NECK: Supple. HEART: Regular S1, S2. LUNGS: Have rhonchi and wheezing that clear with coughing at the right posterior base. ABDOMEN: Soft. EXTREMITIES: No edema. SKIN: Without rash. NEUROLOGICAL: Intact. PSYCHOLOGICAL: Alert. VASCULAR: Legs are warm to touch. DATA: Hemoglobin 13.4, hematocrit 40.5. Sodium 145, potassium 4.2, chloride 105, bicarbonate 28, BUN 10, creatinine 0.7, random blood sugar is 95. IMPRESSION: This is an 82-year-old female with a right lower lung community-acquired pneumonia and comorbidities of hyperlipidemia, chronic hypertension, and gastroenteritis. The plan as discussed with the patient, family and nursing will be to continue a heart-healthy soft bland diet while maintaining the patient on high fall risk protocol and physical and occupational therapy daily for reconditioning and gait training. She will continue with 2 liters of nasal O2 p.r.n. and has orders for Zofran 4 mg IV q. 6 hours p.r.n. nausea and vomiting, Zithromax 500 mg p.o. daily, Zestril 10 mg p.o. b.i.d., Xopenex 0.63 mg inhalational therapy q. 6h., Tylenol 650 p.o. q. 6h. p.r.n. pain or temperature greater than 101, Rocephin 1 g IV q. 24, Robitussin DM 5 mL p.o. q.4 h. p.r.n. cough, Pepcid 20 mg p.o. at bedtime, Norvasc 5 mg p.o. daily, Lipitor 10 mg p.o. daily and nitroglycerin 1 inch to chest wall q. 4h. if her systolic blood pressure is greater than 160 or her diastolic blood pressure is greater than 100. The plan will be for eventual follow up of her chest x-ray for resolution of her right lower lung pneumonia and ultimate plan is for discharge to home when medically stable. Kaylie Fox MD [facility]
[2018-01-22] MEDS: Levalbuterol 0.63 MG/3 ML Inhal Soln UD IH SCH ×4 (01:15→19:45)
[2018-01-22] MEDS: cefTRIAXone 1 gm 1 GM/100 ML BAG IVPB SCH (05:26)
--- NOTE | 2018-01-22 14:50 | PN ---
DATE: 01/22/2018 SUBJECTIVE: This 82-year-old female was examined at the bedside in the presence of her daughter. The patient is tolerating IV antibiotics and pulmonary toiletry for right lower lung pneumonia. The patient was admitted with nausea and vomiting in the setting of gastroenteritis, which has subsequently resolved. She also had electrolyte imbalances related to her vomiting and diarrhea and at present has normalization of blood work. When questioning the patient, she denies any fevers, chills, chest pain or shortness of breath. PHYSICAL EXAMINATION: VITAL SIGNS: Temperature is 97.9, respirations 18, pulse 71 and blood pressure 118/56 with a pulse ox of 95%. HEENT: Head is normocephalic, atraumatic. Eyes: No icterus. Ears: Clear. Throat: Noninjected. NECK: Supple. HEART: Regular S1, S2. LUNGS: Have rhonchi at the right base with occasional wheezing that clears with coughing. ABDOMEN: Soft, nontender. There is no palpable organomegaly. No rebound, no guarding. No tenderness. EXTREMITIES: No clubbing. No cyanosis. No edema. SKIN: Without rash. NEUROLOGICAL: Intact. PSYCHOLOGICAL: Chronic anxiety. VASCULAR: Legs warm to touch. LABORATORY DATA: Hemoglobin 13.4, hematocrit 40.5. Sodium 145, K 4.2, chloride 105, bicarb 28, BUN 10, creatinine 0.7, random blood sugar is 95. IMPRESSION: An 82-year-old female with a right lower lung pneumonia, admitted with gastroenteritis, nausea, vomiting, diarrhea and electrolyte imbalance, subsequently treated with parenteral fluids and mineral replacement with normalization of blood work with comorbidities of hyperlipidemia, chronic hypertension and peptic ulcer disease with gastroesophageal reflux disease. PLAN: The plan is discussed with the patient, daughter and nursing in detail will be to continue heart-healthy soft bland diet while maintaining the patient on high-risk fall protocol, out of bed to chair with assistance and physical and occupational therapy for reconditioning and gait training. She continues on 2 L of nasal O2 p.r.n., Zofran 4 mg IV q. 6 hours p.r.n. nausea, vomiting, Zithromax 500 mg p.o. daily, Zestril 10 mg p.o. b.i.d., Xopenex inhalational therapy 0.63 mg q. 6 hours, Tylenol 650 p.o. q. 6 hours p.r.n. pain or temperature greater than 101, Rocephin 1 g IV q. 24, Robitussin 5 mL p.o. q. 4 hours p.r.n. cough, Pepcid 20 mg p.o. at bedtime, Norvasc 5 mg p.o. daily, nitroglycerin ointment 1 inch to chest wall q. 4 hours if systolic blood pressure greater than 160 or diastolic blood pressure greater than 100, Lipitor 10 mg p.o. at dinner time. Ultimate plan will be for continuation of IV antibiotics and pulmonary toiletry with a followup chest x-ray and plans for discharge to home with family providing 24-hour supervision upon release. All of the above was discussed in detail with the patient, daughter at bedside. All questions were answered. Kaylie Fox MD [facility]
[2018-01-23] MEDS: cefTRIAXone 1 gm 1 GM/100 ML BAG IVPB SCH (05:29)
[2018-01-23] MEDS: Levalbuterol 0.63 MG/3 ML Inhal Soln UD IH SCH ×4 (06:36→21:01)
--- NOTE | 2018-01-23 19:13 | PN ---
DATE: 01/23/2018 SUBJECTIVE: This 82-year-old female remains hospitalized, receiving parenteral antibiotics and pulmonary toiletry in the setting of right lower lung pneumonia. To date, there have been no reports of hemoptysis and she denies any fever, chills or chest pain at present. She was admitted with gastroenteritis, nausea, vomiting and electrolyte imbalances, which have been corrected with supplementation and IV fluid. PHYSICAL EXAMINATION: VITAL SIGNS: At present, temperature is 98.2, respirations 16, pulse 79 and blood pressure 109/51 and pulse ox 98%. HEENT: Head: Normocephalic, atraumatic. Eyes: No icterus. Ears: Clear. Throat: Noninjected. NECK: Supple. HEART: Regular S1, S2. LUNGS: Have rhonchi at the right base. ABDOMEN: Soft. EXTREMITIES: No edema. SKIN: Without rash. NEUROLOGICAL: Intact. PSYCHOLOGICAL: Alert. VASCULAR: Legs warm to touch. LABORATORY DATA: Hemoglobin 13.4, hematocrit 40.5. Sodium 145, K 4.2, chloride 105, bicarb 28, BUN 10, creatinine 0.7, random blood sugar is 95. IMPRESSION: An 82-year-old female with right lower lung community-acquired pneumonia and comorbidities of hyperlipidemia, chronic hypertension, peptic ulcer disease with gastroesophageal reflux disease. PLAN: As discussed with the patient, family and nursing, will be to continue oral Zithromax, p.o. Zestril, inhalational Xopenex, IV Rocephin, Robitussin DM, Pepcid, Norvasc and Lipitor. She will have repeat basic metabolic panel, CBC in a.m. Followup chest x-ray in the next 48 hours and ultimate plan will be for discharge to home when medically stable. Kaylie Fox MD [facility]
[2018-01-24] MEDS: Levalbuterol 0.63 MG/3 ML Inhal Soln UD IH SCH ×4 (01:38→20:15)
[2018-01-24] MEDS: cefTRIAXone 1 gm 1 GM/100 ML BAG IVPB SCH (05:12)
[2018-01-24 07:18] LABS: HEMOGLOBIN 13.5 g/dL (12.0-16.0)
[2018-01-24 07:30] LABS: BLOOD UREA NITROGEN 17 mg/dL (7-21); CALCIUM 9.3 mg/dL (8.4-10.5); GFR AFRICAN-AMERICAN > 60; GFR NON-AFRICAN AMERICAN > 60
--- NOTE | 2018-01-24 13:44 | PN ---
DATE: 01/24/2018 SUBJECTIVE: This 82-year-old female was examined at her bedside and this case was reviewed in detail with herself and her nurse, Thierno. The patient is cooperating with staff. She is tolerating diet and medication well. She is receiving parenteral antibiotics for right lower lung pneumonia and denies any fever, chills, or hemoptysis. PHYSICAL EXAMINATION: VITAL SIGNS: Temperature 98.2, respirations 18, pulse 80, blood pressure 131/64, and pulse ox 99%. HEENT: Head: Normocephalic, atraumatic. Eyes: No icterus. Ears: Clear. Throat: Noninjected. NECK: Supple. HEART: Regular, S1 and S2. LUNGS: Rhonchi at the right base, cleared with coughing. ABDOMEN: Soft. EXTREMITIES: No edema. SKIN: Without rash. NEUROLOGIC: Intact. PSYCHOLOGIC: Alert. VASCULAR: Legs warm to touch. LABORATORY DATA: Hemoglobin 13.5, hematocrit 40.9. Sodium 145, K 4.2, chloride 104, bicarb 30. BUN 17, creatinine 0.6. Random blood sugar 95. IMPRESSION: An 82-year-old female with right lower lung pneumonia and comorbidities of hypertension and hyperlipidemia. PLAN: The plan at present, as discussed with the patient and Nursing, will be to continue Zithromax 500 mg p.o. daily, Zestril 10 mg p.o. b.i.d., Xopenex inhalational therapy 0.63 mg q.6, Rocephin 1 g IV q.24, Robitussin 5 mL p.o. q. 4 hours p.r.n. cough, Pepcid 20 mg p.o. at bedtime, Norvasc 5 mg p.o. daily, Lipitor 10 mg p.o. daily. She will be scheduled for a followup chest x-ray within the next 48 hours and ultimate plan will be for discharge to home when medically stable. Kaylie Fox MD [facility]
[2018-01-25] MEDS: Levalbuterol 0.63 MG/3 ML Inhal Soln UD IH SCH ×4 (03:10→20:22)
[2018-01-25] MEDS: cefTRIAXone 1 gm 1 GM/100 ML BAG IVPB SCH (05:14)
--- NOTE | 2018-01-25 09:58 | PN ---
DATE: 01/25/2018 SUBJECTIVE: This 82-year-old female remains hospitalized, receiving pulmonary inhalational therapy, nasal O2 and IV antibiotics as well as chest PT for right lower lung pneumonia. She denies any active fever, chills, chest pain or shortness of breath. PHYSICAL EXAMINATION: VITAL SIGNS: Temperature of 98, respirations 18, pulse 70 and blood pressure 122/65. Pulse ox is 98% room air. HEENT: Head normocephalic, atraumatic. Eyes: No icterus. Ears: Clear. Throat: Noninjected. NECK: Supple. HEART: Regular S1, S2. LUNGS: Have rhonchi at the right posterior base. ABDOMEN: Soft. EXTREMITIES: No edema. SKIN: Without rash. NEUROLOGICAL: Intact. PSYCHOLOGICAL: Alert. VASCULAR: Legs warm to touch. LABORATORY DATA: Hemoglobin 13.5, hematocrit 40.9. Sodium 145, potassium 4.2, chloride 104, bicarb 30, BUN 17, creatinine 0.6, random blood sugar is 95. IMPRESSION: An 82-year-old female with community-acquired right lower lung pneumonia and comorbidities of hypertension, chronic hyperlipidemia, peptic ulcer disease with gastroesophageal reflux disease. PLAN: As discussed with nursing, patient and family will be to continue physical and occupational therapy for reconditioning and gait training. She is out of bed to chair with assistance and remains on high-risk fall protocol. She is receiving nasal O2 and medication including Zithromax orally 500 mg daily, Zestril 10 mg b.i.d., Xopenex inhalational therapy 0.63 mg q. 6 hours, Rocephin 1 g IV q. 24, Robitussin DM 5 mL p.o. q. 6 p.r.n. cough, Pepcid 20 mg p.o. at bedtime, Norvasc 5 mg p.o. daily, Lipitor 10 mg p.o. daily. The patient will have a repeat chest x-ray in the a.m. and ultimate plan is for discharge to home when medically stable. All of the above was discussed in detail with the patient, nursing and family. All questions were answered. Kaylie Fox MD [facility] # [id number] [facility]
[2018-01-26] MEDS: Levalbuterol 0.63 MG/3 ML Inhal Soln UD IH SCH ×4 (01:30→21:45)
[2018-01-26] MEDS: cefTRIAXone 1 gm 1 GM/100 ML BAG IVPB SCH (05:09)
[2018-01-26] MEDS ORDERED: Pneumococcal 23-Valent Vaccine IM ONE (10:00)
[2018-01-26] MEDS ORDERED: Influenza Vaccine 60 mcg/0.5 mL SYR (4YR UP) IM ONE (10:00)
--- NOTE | 2018-01-26 12:15 | RAD ---
HISTORY: COMPARISON: 01/16/2018. TECHNIQUE: Chest PA and lateral FINDINGS: LINES AND TUBES: None. LUNG AND PLEURA: The lungs are well inflated. Again seen is a small loculated right pleural effusion. No focal consolidation. No pneumothorax. HEART AND MEDIASTINUM: The heart is not enlarged. The hilar and mediastinal contours are within normal limits. SKELETAL STRUCTURES: The bony structures are within normal limits for the patient's age. VISUALIZED UPPER ABDOMEN: Normal. OTHER FINDINGS: None. IMPRESSION: Persistent small loculated right pleural effusion.
--- NOTE | 2018-01-26 15:49 | PN ---
DATE: 01/26/2018 SUBJECTIVE: This 82-year-old female remains hospitalized, receiving pulmonary treatment and inhalational therapy, and completing IV antibiotics in the setting of a right lower lung pneumonia. She denies fever, chills, chest pain or shortness of breath and is awaiting followup PA and lateral chest x-ray regarding progress made with intervention for right lower lung pneumonia. PHYSICAL EXAMINATION VITAL SIGNS: Temperature is 97.9, respirations 18, pulse 80, blood pressure 131/60, pulse ox 98% on room air. HEENT: Head: Normocephalic, atraumatic. Eyes: No icterus. Ears: Clear. Throat: Noninjected. NECK: Supple. HEART: Regular, S1 and S2. LUNGS: Clear. ABDOMEN: Soft. EXTREMITIES: No edema. SKIN: Without rash. NEUROLOGIC: Intact. PSYCHOLOGIC: Alert. VASCULAR: Legs warm to touch. LABORATORY DATA: Hemoglobin 13.5, hematocrit 40.9. Sodium 145, K 4.2, chloride 104, bicarbonate 30, BUN 17, creatinine 0.6, random blood sugar 95. IMPRESSION: An 82-year-old female with right lower lung pneumonia and comorbidities of hyperlipidemia, chronic hypertension, peptic ulcer disease with gastroesophageal reflux disease. PLAN: Plans as discussed with the patient, family and nursing including her nurse today, Ryan Clarke, registered nurse will be to complete a PA and lateral chest x-ray. She continues on Lipitor 10 mg p.o. daily, Norvasc 5 mg p.o. daily, Pepcid 20 mg p.o. at bedtime, Robitussin DM 5 mL p.o. q. 6 hours p.r.n. cough, Xopenex inhalational therapy 0.63 mg q. 6 and Zestril 10 mg p.o. b.i.d. She continues on heart-healthy diet, 2 liters nasal O2 p.r.n., high-risk fall protocol and physical and occupational therapy for reconditioning and gait training. Ultimate plan is for discharge in a.m. if medically stable. All of the above was reviewed in detail with the patient, nursing and family. All questions were answered. Kaylie Fox MD [facility] # [id number] MTDD
[2018-01-26 17:44] VITALS: RESP 19; TEMP 98.3; O2SAT 96
[2018-01-27] MEDS: Levalbuterol 0.63 MG/3 ML Inhal Soln UD IH SCH ×3 (03:15→13:12)
[2018-01-27 09:20] VITALS: BP 125/68; PULSE 78
[2018-01-27 12:05] LABS: INR 0.98 (0.93-1.08); PARTIAL THROMBOPLASTIN TIME 30.4 Seconds (25.1-36.5); PROTHROMBIN TIME 11.3 SECONDS (9.4-12.5)
--- NOTE | 2018-01-27 13:37 | PN ---
DATE: 01/27/2018 SUBJECTIVE: This 82-year-old female was examined at her bedside in the presence of her son and [id number]. She was seen earlier today by Dr. Elvin Valle. The patient's followup chest x-ray shows a persistent right possible loculated pleural effusion. This was reviewed by Dr. Valle and he has concerns of a possible loculated effusion versus mass at the base of her right lung. He is evaluating the patient for possible CT-guided biopsy versus aspiration of this finding. This was discussed in detail with the patient and son at bedside. They will be discussing this further with Dr. Elvin Valle. PHYSICAL EXAMINATION: VITAL SIGNS: Temperature is 98.3, respirations 19, pulse 78 and blood pressure 125/68 with a pulse ox of 96% on room air. HEENT: Head normocephalic, atraumatic. Eyes: No icterus. Ears: Clear. Throat: Noninjected. NECK: Supple. HEART: Regular S1, S2. LUNGS: Without wheezing. ABDOMEN: Soft. EXTREMITIES: No edema. SKIN: Without rash. NEUROLOGICAL: Intact. PSYCHOLOGICAL: Alert. VASCULAR: Legs warm to touch. LABORATORY DATA: Hemoglobin 13.5, hematocrit 40.9. PT/INR 0.98, PTT 30.4. Sodium 145, K 4.2, chloride 104, bicarb 30, BUN 17, creatinine 0.6, random blood sugar is 95. IMPRESSION: An 82-year-old female status post treatment for right lower lung pneumonia, now resolved with persistent right loculated pleural effusion versus mass and comorbidities of hyperlipidemia, chronic hypertension and peptic ulcer disease with gastroesophageal reflux disease. As discussed with the patient and family at bedside, they will be further discussing the possibility of pleural effusion, aspiration versus loculated mass biopsy with CT-guided efforts by Dr. Elvin Valle from [facility]. At present, she will continue on Lipitor 10 mg p.o. daily, Norvasc 5 mg p.o. daily, Pepcid 20 mg p.o. at bedtime, Robitussin DM 5 mL p.o. q. 6 hours p.r.n. cough, Xopenex inhalational therapy q. 6, Zestril 10 mg p.o. b.i.d. She is ordered to have nasal O2 p.r.n., a heart-healthy soft bland diet. She continues on physical and occupational therapy for reconditioning and remains on high-risk fall protocol. Ultimate plan will be for discharge to home with the patient following up with her primary medical doctor and online content editor at [facility] upon discharge to home. All of the above was discussed in detail with the patient, family and Dr. Elvin Valle. Greater than 35 minutes was spent in the care and management, review of labs, x-rays and orders for this patient today. All questions were answered. Kaylie Fox MD MTDPerry
--- NOTE | 2018-01-28 22:30 | DS ---
FINAL DIAGNOSES: Right lower lung pneumonia, improved; chronic hypertension; hyperlipidemia; history of abnormal chest x-ray and PET scan being monitored by her floorworker and [facility]. Disposition home. Follow up with Pulmonary at [facility] as outlined. DISCHARGE MEDICATIONS: Norvasc 5 mg p.o. daily, Vasotec 20 mg p.o. daily, Lipitor 10 mg p.o. daily, Robitussin DM 5 mL p.o. q. 6 hours p.r.n. cough. CNC MILLING MACHINE OPERATOR: Dr. Elvin Valle from [facility]. SUMMARY: This is an 82-year-old female was admitted to [facility] and treated with parenteral antibiotics, pulmonary toiletry, inhalational therapy and chest PT for right lower lung community-acquired pneumonia. Hospital course was notable for improvement in clinical symptomatology and of note, patient was noted to have a final chest x-ray that was reviewed with Dr. Elvin Valle that showed lungs were clear and well inflated and a persistent small loculated right pleural effusion was noted, but no focal consolidation or pneumothorax. Patient's family commented that the patient is being followed on a chronic basis by a floorworker at [facility] with whom Dr. Elvin Valle from [facility] spoke. It was our initial opinion that we would consider this patient for CT-guided aspiration of fluid versus biopsy of abnormality at the base of her right lung; however, Dr. Valle, upon further discussion with the patient's pulmonary physician at [facility], states that he has been monitoring this as an [facility] with [facility] CAT scans and that it is actually a finding that it is getting smaller in size, not larger. It was both the patient and family's desire to not proceed with any interventional drainage nor biopsy of this finding at the present time, but to follow up with their pulmonary physician at [facility] as previously outlined. At time of discharge, patient was ambulating independently, temperature 98.3, respirations 19, pulse 78 and blood pressure 125/68 with a pulse ox of 96% on room air. Hemoglobin 13.5, hematocrit 40.9. Sodium 145, K 4.2, chloride 104, bicarb 30, BUN 17, creatinine 0.6, random blood sugar 95. Calcium normal at 9.3. Patient is cleared for discharge to home. Family is aware it is their responsibilities to follow up with their floorworker as recommended and that for any change in signs and symptoms, to present directly to their closest emergency room. Once again, the patient was noted at the time of discharge to have a small loculated right pleural effusion for which patient and family preferred to follow up with their pulmonary physician which they have been doing on a chronic basis for this issue at [facility]. Kaylie Fox MD
== END 2018-01-27 16:21 | disposition home or self-care (01) | DRG 194 ==
LOC: TRCU 19:28
PROVIDERS: ADMIT Internal Medicine; ATTEND Internal Medicine
PROC: 3E03329 Introduction of Other Anti-infective into Peripheral Vein, Percutaneous Approach (ICD-10-PCS; 2018-01-19)
PROC: F07Z9ZZ Gait Training/Functional Ambulation Treatment (ICD-10-PCS; principal; 2018-01-21)
PROC: F07L6YZ Therapeutic Exercise Treatment of Musculoskeletal System - Lower Back / Lower Extremity using Other Equipment (ICD-10-PCS; 2018-01-21)
PROC: F07Z8ZZ Transfer Training Treatment (ICD-10-PCS; 2018-01-21)
PROC: F08Z1FZ Dressing Techniques Treatment using Assistive, Adaptive, Supportive or Protective Equipment (ICD-10-PCS; 2018-01-21)
PROC: F08Z2FZ Grooming/Personal Hygiene Treatment using Assistive, Adaptive, Supportive or Protective Equipment (ICD-10-PCS; 2018-01-21)
DX: J18.9 Pneumonia, unspecified organism (principal); J90 Pleural effusion, not elsewhere classified; E87.8 Other disorders of electrolyte and fluid balance, not elsewhere classified; K52.9 Noninfective gastroenteritis and colitis, unspecified; E78.5 Hyperlipidemia, unspecified; I10 Essential (primary) hypertension; K27.9 Peptic ulcer, site unspecified, unspecified as acute or chronic, without hemorrhage or perforation; K21.9 Gastro-esophageal reflux disease without esophagitis; Z79.2 Long term (current) use of antibiotics

== ENCOUNTER 2018-07-25 21:59 | Emergency (ER) | payer MEDICARE, MEDICAID ==
[2018-07-25 22:31] VITALS: RESP 18; TEMP 97.7; BMI 24.5
[2018-07-25] MEDS ORDERED: Sodium Chloride 0.9% 500 ML IV STA (23:07)
[2018-07-25] MEDS ORDERED: Iohexol 240 (50 ml) ONE (23:23)
--- NOTE | 2018-07-25 23:29 | ED PDOC ---
Arrival/HPI - General Historian: Patient - History of Present Illness Time/Duration: Other (5 days ago) Symptom Onset: Sudden Symptom Course: Intermittent Activities at Onset: Eating Context: Home - General Chief Complaint: GI Problem Time Seen by Provider: 07/25/18 22:58 - History of Present Illness Narrative History of Present Illness (Text): 07/25/18 23:26 83 year old female, whose past medical history includes hypertension and hyperlipidemia, presents to the emergency department complaining intermittent pain to the lower abdomen associated with nausea and belching that began 5 days ago. Patient states these symptoms began after eating breakfast. She reports the pain is worse any time she eats. Patient reports having diarrhea that began today. Patient denies any fever, chills, chest pain, shortness of breath, vomiting, abdominal surgeries, urinary symptoms, back pain, neck pain, headache , dizziness, or any other complaints. (Kemal ARROYO,Kari Carrera) Past Medical History - Provider Review Nursing Documentation Reviewed: Yes - Past History Past History: No Previous - Infectious Disease Hx of Infectious Diseases: None - Tetanus Immunization Tetanus Immunization: Unknown - Cardiac Hx Cardiac Disorders: Yes Hx Hypertension: Yes Hx Pacemaker: No - Pulmonary Hx Respiratory Disorders: No - Neurological Hx Neurological Disorder: No - HEENT Hx HEENT Disorder: No - Renal Hx Renal Disorder: No - Endocrine/Metabolic Hx Endocrine Disorders: No - Hematological/Oncological Hx Blood Disorders: Yes Hx Shingles: Yes (left scientology around to left face and neck) Other/Comment: pt had shingles in 2017, rash faded but visible to left scientology left face and left neck, pt denies residual pain but c/o intermittent itching - Integumentary Hx Dermatological Disorder: No Other/Comment: faded shingles rash to left scientology left face left neck, pt c/o intermittent itching - Musculoskeletal/Rheumatological Hx Musculoskeletal Disorders: Yes - Gastrointestinal Hx Gastrointestinal Disorders: Yes (Gastritis) Hx Gastritis: Yes - Genitourinary/Gynecological Hx Genitourinary Disorders: No Hx Reproductive Disorders: No - Psychiatric Hx Depression: No Hx Emotional Abuse: No Hx Physical Abuse: No Hx Substance Use: No - Past Surgical History Past Surgical History: Unable to Obtain - Suicidal Assessment Feels Threatened In Home Enviroment: No Family/Social History - Physician Review Nursing Documentation Reviewed: Yes Family/Social History: No Known Family HX Smoking Status: Never Smoked Hx Alcohol Use: No Hx Substance Use: No Hx Substance Use Treatment: No Allergies/Home Meds Allergies/Adverse Reactions: Allergies No Known Allergies Allergy (Verified 07/25/18 22:30) Home Medications: Home Meds Medication Instructions Recorded Confirmed Atorvastatin [Lipitor] 10 mg PO DAILY 01/16/18 07/25/18 Enalapril Maleate [Vasotec] 20 mg PO DAILY 01/16/18 07/25/18 amLODIPine [Norvasc] 5 mg PO DAILY 01/16/18 07/25/18 Review of Systems - Physician Review All systems were reviewed & negative as marked: Yes - Review of Systems Constitutional: absent: Fevers, Other (Chills) Respiratory: absent: SOB Cardiovascular: absent: Chest Pain Gastrointestinal: Abdominal Pain, Diarrhea, Nausea, Other (belching). absent: Vomiting Genitourinary Female: absent: Dysuria, Frequency, Hematuria Musculoskeletal: absent: Back Pain, Neck Pain Neurological: absent: Headache, Dizziness Physical Exam Vital Signs Reviewed: Yes Temperature: Afebrile Blood Pressure: Normal Pulse: Bradycardic Respiratory Rate: Normal Appearance: Positive for: Well-Appearing, Non-Toxic, Comfortable Pain Distress: None Mental Status: Positive for: Alert and Oriented X 3 - Systems Exam Head: Present: Atraumatic, Normocephalic Pupils: Present: PERRL Extroacular Muscles: Present: EOMI Conjunctiva: Present: Normal Mouth: Present: Moist Mucous Membranes Neck: Present: Normal Range of Motion Respiratory/Chest: Present: Clear to Auscultation, Good Air Exchange. No: Respiratory Distress, Accessory Muscle Use Cardiovascular: Present: Regular Rate and Rhythm, Normal S1, S2. No: Murmurs Abdomen: No: Tenderness, Distention, Peritoneal Signs Back: Present: Normal Inspection Upper Extremity: Present: Normal Inspection. No: Cyanosis, Edema Lower Extremity: Present: Normal Inspection. No: Edema Neurological: Present: GCS=15, CN II-XII Intact, Speech Normal Skin: Present: Warm, Dry, Normal Color. No: Rashes Psychiatric: Present: Alert, Oriented x 3, Normal Insight, Normal Concentration Vital Signs Temp Pulse Resp BP Pulse Ox 07/26/18 02:47 68 18 134/73 100 07/25/18 22:31 97.7 F 56 L 18 132/73 98 Medical Decision Making - Lab Interpretations I have reviewed the lab results: Yes ED Course and Treatment: EXAM: CT Abdomen and Pelvis With Intravenous Contrast Dictated and Authenticated by: Maira Palacio MD 07/26/2018 2:33 AM IMPRESSION: No acute findings. Spinal stenosis at L4/5 07/26/18 02:39 On re-evaluation, patient feels better and is in no acute distress. I have discussed the results and plan with the patient, who expresses understanding. Patient in agreement with plan to be discharged home. Patient is stable for discharge. Patient was instructed to follow up with physician or return if symptoms worsen or new concerning symptoms arise. (BrittanyarsalanPadmaja M) 07/25/18 23:33 Impression: 83 year old female presents complaining of lower abdominal pain associated with nausea and belching that began 5 days ago after eating breakfast. Patient also complaining of diarrhea that began today. Plan: -- CT Abd and Pelvis IV Contrast -- Labs -- Chest X-ray 1V -- Pepcid, IV Fluids, Zofran Inj -- Urinalysis -- Reassess and disposition Prior Visits: Notes and results from previous visits were reviewed. Progress Notes: CXR : NAD, as read by PA EKG : SB 52 bpm, no acute ST changes, as read by PA Labs reviewed and wnl. Patient resting comfortably at this time, still without CP, SOB or abdominal pain. Patient went to CT. CT results still pending. (Kemal ARROYO,Kari Carrera) - Lab Interpretations Lab Results: 07/25/18 22:05 07/25/18 22:05 Lab Results 07/26/18 01:25: Urine Color Straw, Urine Appearance Clear, Urine pH 6.0, Ur Specific [place] <= 1.005, Urine Protein Negative, Urine Glucose (UA) Negative, Urine Ketones Negative, Urine Blood Trace-intact H, Urine Nitrate Negative, Urine Bilirubin Negative, Urine Urobilinogen 0.2, Ur Leukocyte Esterase Negative , Urine RBC 0 - 2, Urine WBC 0 - 2, Ur Epithelial Cells None, Urine Bacteria Few 07/25/18 22:05: Sodium 137, Potassium 3.8, Chloride 98, Carbon Dioxide 25, Anion Gap 18, BUN 11, Creatinine 0.6 L, Est GFR ( Amer) > 60, Est GFR ( Non-Af Amer) > 60, Random Glucose 96, Calcium 8.8, Magnesium 2.2, Total Bilirubin 0.8, AST 30, ALT 42, Alkaline Phosphatase 54, Total Protein 8.5 H, Albumin 5.2 H, Globulin 3.4, Albumin/Globulin Ratio 1.5, Lipase 164 07/25/18 22:05: PT 11.2, INR 0.98, APTT 30.8 07/25/18 22:05: WBC 5.5 D, RBC 4.61, Hgb 14.3, Hct 40.3, MCV 87.4 D, MCH 31.0 , MCHC 35.5, RDW 12.2, Plt Count 230, MPV 10.2, Gran % 44.8 L, Lymph % (Auto) 41.5 H, [place] % (Auto) 10.1 H, Eos % (Auto) 2.9, Baso % (Auto) 0.7, Gran # 2.45, Lymph # (Auto) 2.3, [place] # (Auto) 0.6, Eos # (Auto) 0.2, Baso # (Auto) 0.04 - RAD Interpretation Radiology Orders: 07/25/18 23:07 ABD PELVIS PO & IV CONTRAST [CT] Stat 07/25/18 23:12 CHEST ONE VIEW [RAD] Stat - Medication Orders Current Medication Orders: Discontinued Medications Famotidine (Pepcid) 20 mg IVP STAT STA Stop: 07/25/18 23:08 Last Admin: 07/25/18 23:27 Dose: 20 mg IVP Administration Document 07/25/18 23:27 RD (Rec: 07/25/18 23:28 RD [id number]) Charges for Administration # of IVP Administrations 1 Sodium Chloride (Sodium Chloride 0.9%) 500 mls @ 500 mls/hr IV .Q1H STA Stop: 07/26/18 00:06 Last Admin: 07/25/18 23:28 Dose: 500 mls/hr eMAR Start Stop Document 07/25/18 23:28 RD (Rec: 07/25/18 23:28 RD [id number]) Intravenous Solution Start Date 07/25/18 Start Time 23:28 End Date 07/25/18 End time 23:58 Total Infusion Time 30 Ondansetron HCl (Zofran Inj) 4 mg IVP STAT STA Stop: 07/25/18 23:08 Last Admin: 07/25/18 23:25 Dose: 4 mg IVP Administration Document 07/25/18 23:25 RD (Rec: 07/25/18 23:27 RD [id number]) Charges for Administration # of IVP Administrations 1 - PA / SALES FINANCIAL ANALYST / Resident Statement MD/DO has reviewed & agrees with the documentation as recorded. - Scribe Statement The provider has reviewed the documentation as recorded by the Scribe - Scribe Statement Norma Calloway Provider Scribe Attestation: All medical record entries made by the Scribe were at my direction and personally dictated by me. I have reviewed the chart and agree that the record accurately reflects my personal performance of the history, physical exam, medical decision making, and the department course for this patient. I have also personally directed, reviewed, and agree with the discharge instructions and disposition. (Kemal ARROYO,Kari Carrera) Disposition/Present on Arrival - Present on Arrival Any Indicators Present on Arrival: No History of DVT/PE: No History of Uncontrolled Diabetes: No Urinary Catheter: No History of Decub. Ulcer: No History Surgical Site Infection Following: None - Disposition Have Diagnosis and Disposition been Completed?: Yes Disposition Time: 02:45 Patient Plan: Discharge - Disposition Diagnosis: Abdominal pain Disposition: HOME/ ROUTINE Condition: GOOD Discharge Instructions (ExitCare): Acute Abdomen (Belly Pain) Additional Instructions: HAROON CHAUDHRY, thank you for letting us take care of you today. Your provider was Padmaja Godwin MD and you were treated for ABD PAIN. The emergency medical care you received today was directed at your acute symptoms. If you were prescribed any medication, please fill it and take as directed. It may take several days for your symptoms to resolve. Return to the Emergency Department if your symptoms worsen, do not improve, or if you have any other problems. Please contact your doctor or call one of the physicians/clinics you have been referred to that are listed on the Patient Visit Information form that is included in your discharge packet. Bring any paperwork you were given at discharge with you along with any medications you are taking to your follow up visit. Our treatment cannot replace ongoing medical care by a primary care provider outside of the emergency department. Thank you for allowing the [facility] team to be part of your care today. If you had an X-Ray or CT scan: A Radiologist will review the ED reading if any change in treatment is needed we will contact you. If you had a blood, urine, or wound culture: It will take several days for the results, if any change in treatment is needed we will contact you. If you had an STI test: It will take 48 hours for the results. Please call after 1 week if you have not heard back. Forms: Lootsie (Filipino) - Notes Notes (Text): 07/26/18 14:34 CXR : IMPRESSION: Subtle focal opacity at the right lateral mid to lower lobe. Mild pulmonary venous congestion. Trace fluid within the fissure. Patient called, message left. Will attempt a second call. 07/26/18 17:00 Received a phone call from Ninoska KESSLER at [facility], who states that the patient is currently under her care at their facility presenting for similar c/o abdominal pain, nausea and belching. Diagnostic results d/w her with consent from the patient. CXR findings were d/w Ninoska KESSLER and she was advised to notify patient as well regarding CXR results. (Kemal ARROYO,Kari Carrera)
[2018-07-25 23:43] LABS: BASO # 0.04 K/mm3 (0.0-2.0); BASO % 0.7 % (0.0-3.0); EOS # 0.2 (0.0-0.7); EOS % 2.9 % (1.5-5.0); GRAN # 2.45 (1.4-6.5); GRAN % 44.8 % (50.0-68.0); HEMOGLOBIN 14.3 g/dL (12.0-16.0); LYMPH # 2.3 (1.2-3.4); LYMPH % 41.5 % (22.0-35.0); MEAN CELL VOLUME 87.4 fl (80.0-105.0); MEAN CORPUSCULAR HGB CONC 35.5 g/dl (31.0-37.0); MEAN PLATELET VOLUME 10.2 fl (7.0-11.0); MONO # 0.6 (0.1-0.6); MONO % 10.1 % (1.0-6.0); RBC 4.61 10^6/uL (3.5-6.1); RED CELL DISTRIBUTION WIDTH 12.2 % (11.5-14.5); WHITE BLOOD COUNT 5.5 10^3/ul (4.5-11.0)
[2018-07-25 23:45] LABS: ALB/GLOB RATIO 1.5 (1.1-1.8); ALBUMIN 5.2 g/dL (3.0-4.8); ALT/SGPT 42 U/L (7-56); AST/SGOT 30 U/L (14-36); BLOOD UREA NITROGEN 11 mg/dL (7-21); CALCIUM 8.8 mg/dL (8.4-10.5); GFR NON-AFRICAN AMERICAN > 60; LIPASE 164 U/L (23-300)
[2018-07-25 23:48] LABS: INR 0.98; PARTIAL THROMBOPLASTIN TIME 30.8 Seconds (25.1-36.5); PROTHROMBIN TIME 11.2 SECONDS (9.4-12.5)
[2018-07-26] MEDS ORDERED: Iohexol 350 MG/100 ML VIAL ONE (00:16)
[2018-07-26 01:51] LABS: URINE BILIRUBIN NEGATIVE (NEGATIVE); URINE BLOOD TRACE-INTACT (NEGATIVE); URINE GLUCOSE (UA) NEGATIVE (NEGATIVE); URINE LEUKOCYTE ESTERASE NEGATIVE Leu/uL (NEGATIVE); URINE PROTEIN NEGATIVE mg/dL (<30 mg/dL); URINE UROBILINOGEN 0.2 E.U./dL (<1 E.U./dL)
[2018-07-26 02:09] LABS: URINE APPEARANCE CLEAR (CLEAR); URINE COLOR STRAW (YELLOW)
[2018-07-26 02:26] LABS: URINE RBC 0 - 2 /hpf (0-2); URINE WBC 0 - 2 /hpf (0-6)
[2018-07-26 02:27] LABS: URINE BACTERIA FEW (NEG)
[2018-07-26 02:48] VITALS: BP 134/73; PULSE 68; O2SAT 100
--- NOTE | 2018-07-26 08:41 | CT ---
PROCEDURE: CT Abdomen and Pelvis with oral and IV contrast. HISTORY: lower abd pain COMPARISON: None. TECHNIQUE: Contiguous axial images of the abdomen and pelvis. Oral and IV contrast was administered. Coronal and Sagittal reformats generated. Contrast dose: Radiation dose: Total exam DLP = 329.06 mGy-cm. This CT exam was performed using one or more of the following dose reduction techniques: Automated exposure control, adjustment of the mA and/or kV according to patient size, and/or use of iterative reconstruction technique. FINDINGS: LOWER THORAX: Mild bibasilar atelectasis. Partially imaged right mid lobe opacity, possibly consolidation. There is no visible pleural effusion or pneumothorax. Small hiatal hernia. LIVER: Unremarkable. GALLBLADDER AND BILE DUCTS: Unremarkable. PANCREAS: Unremarkable. SPLEEN: Unremarkable. ADRENALS: Unremarkable. KIDNEYS AND URETERS: The kidneys enhance symmetrically. No hydronephrosis or obstructing renal calculus. BLADDER: The urinary bladder appears unremarkable. REPRODUCTIVE: Uterus is present. APPENDIX: No secondary signs of acute appendicitis. BOWEL: The stomach is nondistended. The bowel loops appear within normal limits of caliber without evidence of intestinal obstruction. PERITONEUM: No significant free fluid. No definite free air. LYMPH NODES: No bulky lymphadenopathy identified. VASCULATURE: No aortic aneurysm. BONES: Degenerative changes with probable broad-based disc bulge and spinal stenosis at L4-L5. OTHER FINDINGS: None. IMPRESSION: Mild bibasilar atelectasis. Partially imaged right mid lobe opacity, possibly consolidation. Degenerative changes with probable broad-based disc bulge and spinal stenosis at L4-L5. Additional findings as above. Study marked for PA review.
--- NOTE | 2018-07-26 10:17 | RAD ---
HISTORY: abdominal pain COMPARISON: Chest x-ray performed 01/26/18 TECHNIQUE: Chest, one view. FINDINGS: Examination limited by patient obliquity, habitus, and hypoinflation. LUNGS: Mild pulmonary venous congestion. Subtle opacity at the right lateral mid to lower lobe. Trace fluid within the fissure. Please note that chest x-ray has limited sensitivity for the detection of pulmonary masses. PLEURA: No significant pleural effusion identified. No definite pneumothorax . CARDIOVASCULAR: The cardiomediastinal silhouette appears within normal limits of size. OSSEOUS STRUCTURES: No acute osseous abnormality identified. VISUALIZED UPPER ABDOMEN: Unremarkable. OTHER FINDINGS: None. IMPRESSION: Subtle focal opacity at the right lateral mid to lower lobe. Mild pulmonary venous congestion. Trace fluid within the fissure. Recommend further evaluation with chest CT. Study marked for PA review.
--- NOTE | 2018-07-27 05:33 | CARD ---
APPROVED REPORT Date of service: 07/25/2018 EKG Measurement Heart [id number] <Conclusion> Sinus bradycardia Possible Left atrial enlargement Borderline ECG
== END 2018-07-26 02:47 | disposition home or self-care (01) ==
LOC: ED 21:59
DX: R10.30 Lower abdominal pain, unspecified (principal); I10 Essential (primary) hypertension; E78.5 Hyperlipidemia, unspecified
CPT/HCPCS: 71045; 74177; 80053; 81001; 83690; 83735; 85025; 85610; 85730; 93005; 96374; 96375; 99284; J2405; J7040; Q9966; Q9967